=== PATIENT | female | born 1980 | race Two or more races ===

== ENCOUNTER 2018-08-05 16:12 | Outpatient (CLI) | payer OTHER ==
[~2018-08-05 16:12] MED LIST: FLURAZEPAM; WELLBUTRIN75 MG PO
[2018-08-05] MEDS ORDERED: FOLIC ACID20 MG PO (17:20)
[2018-08-05] MEDS ORDERED: VISTARIL25 MG PO (17:21)
== END 2018-08-06 10:40 | disposition home or self-care (01) ==
LOC: OBS/DEL 16:12
DX: O26.892 Other specified pregnancy related conditions, second trimester (principal); R10.2 Pelvic and perineal pain; Z34.02 Encounter for supervision of normal first pregnancy, second trimester

== ENCOUNTER 2018-11-20 15:43 | Inpatient (IN) | payer OTHER ==
[~2018-11-20] VITALS: Ht 154.9 cm; Wt 81.6 kg
[~2018-11-20 15:43] MED LIST changes: +FOLIC ACID20 MG PO; +VISTARIL25 MG PO
== END 2018-11-25 12:32 | disposition home or self-care (01) | DRG 807 ==
LOC: LDR 15:43 → OB/GYN 11-23 04:27 → LDR 11-23 04:27 → OB/GYN 11-23 16:54
PROVIDERS: ADMIT Obstetrics & Gynecology
PROC: 10E0XZZ Delivery of Products of Conception, External Approach (ICD-10-PCS; principal; 2018-11-23)
PROC: 10907ZC Drainage of Amniotic Fluid, Therapeutic from Products of Conception, Via Natural or Artificial Opening (ICD-10-PCS; 2018-11-23)
PROC: 3E0P7VZ Introduction of Hormone into Female Reproductive, Via Natural or Artificial Opening (ICD-10-PCS; 2018-11-23)
PROC: 3E033VJ Introduction of Other Hormone into Peripheral Vein, Percutaneous Approach (ICD-10-PCS; 2018-11-23)
PROC: 4A1HXCZ Monitoring of Products of Conception, Cardiac Rate, External Approach (ICD-10-PCS; 2018-11-23)
DX: O80 Encounter for full-term uncomplicated delivery (principal); Z37.0 Single live birth; Z3A.41 41 weeks gestation of pregnancy

== ENCOUNTER 2025-04-11 07:07 | Day surgery (SDC) | payer OTHER ==
[2025-04-06 09:50] LABS: BASO % 0.6 % (0.1-1.2); EOS # 0.09 (0.04-0.54); EOS % 1.9 % (0.7-7.0); LYMPH # 1.40 (1.18-3.74); LYMPH % 28.9 % (19.3-53.1); MEAN PLATELET VOLUME 9.50 fl (9.4-12.4); MONO # 0.38 (0.24-0.82); MONO % 7.8 % (4.7-12.5); NEUT # 2.95 (1.56-6.13); NEUT % 60.8 % (34.0-71.1); RED CELL DISTRIBUTION WIDTH 12.3 % (11.6-14.4)
[2025-04-06 09:51] LABS: URINE APPEARANCE Clear; URINE BILIRRUBIN Negative (NEGATIVE); URINE BLOOD Negative; URINE COLOR Yellow; URINE GLUCOSE Negative (NEGATIVE); URINE KETONE Negative (NEGATIVE); URINE LEUKOCYTE Negative; URINE NITRATE Negative; URINE PROTEIN Negative (NEGATIVE); URINE UROBILINOGEN 0.2 E.U./dl
[2025-04-06 09:56] LABS: URINE BACTERIA 8.4 uL (0.0-1933); URINE RBC 16.7 uL (0.0-20.8)
[2025-04-06 10:04] VITALS: BP 132/89
[2025-04-06 10:12] LABS: INR 1.05
[2025-04-06 10:13] LABS: ALT/SGPT 30.0 U/L (12-78); AST/SGOT 17.0 U/L (15-37); BILIRUBIN TOTAL 0.59 mg/dL (0.3-1.2); BUN CREA RATIO 21.0 (7.0-25.0); CREATININE SERUM 0.47 mg/dL (0.55-1.02); GFR 144.63; GLOBULINA 4.1 G/DL (2.4-3.5); GLUCOSE FASTING 90.0 mg/dL (65-100); OSMOLALITY SERUM 282.0 MOSM/KG (275-295)
[2025-04-06 10:16] LABS: URINE CAST 0.00 uL (0.0-1.40); URINE EPITHELIAL CELLS 0.9 uL (0.0-38.8); URINE WBC 0.3 uL (0.0-23.2)
[~2025-04-11] VITALS: Ht 158.8 cm; Wt 61.2 kg
[~2025-04-11 07:07] MED LIST changes: +CLONAZEPAM2 MG PO
[2025-04-11] MEDS ORDERED: POVIDONE-IODINE 118 ML BOTT TOP ONE (09:30)
[2025-04-11] MEDS ORDERED: IBU800 MG PO (10:24)
[2025-04-11] MEDS ORDERED: ONDANSETRON HCL 2 MG/ML VIAL IV ONE (10:30)
[2025-04-11] MEDS ORDERED: SUGAMMADEX SODIUM 200 MG/2 ML VIAL IV ONE (10:30)
[2025-04-11] MEDS ORDERED: KETOROLAC TROMETHAMINE 60 MG VIAL IM ONE (10:30)
== END 2025-04-11 12:35 | disposition home or self-care (01) ==
LOC: CIR.AMB 07:07
PROVIDERS: ATTEND Obstetrics & Gynecology
DX: N70.11 Chronic salpingitis (principal)